=== PATIENT | female | born 1955 | race Caucasian/White ===

== ENCOUNTER 2017-10-28 07:40 | Inpatient (IN) | payer OTHER ==
[~2017-10-28] VITALS: Ht 170.2 cm; Wt 121.5 kg
[~2017-10-28 07:40] MED LIST: ADVIL200 MG PO; ALDACTAZIDE 251 EACH PO; COREG25 M1 PO; DOXYCYCLINE HY100 MG PO; EFFEXOR75 MG PO; LO-DOSE ASPIRIN81 M1 PO; LOTENSIN40 MG PO; PROTONIX40 MG PO
[2017-12-02] MEDS ORDERED: CORICIDIN HBP1 EACH PO (08:37)
[2017-12-04 10:42] VITALS: BP 137/74
[2017-12-04 20:34] VITALS: BP 169/91
[2017-12-04 21:45] LABS: BASOPHIL (%) 0.1 % (0-1); EOSINOPHIL (%) 0.1 % (0-5); HEMATOCRIT 31.3 % (36.0-46.0); HEMOGLOBIN 10.2 G/DL (11.9-15.5); IMMATURE GRANULOCYTE (%) 0.4 % (0.0-0.7); LYMPHOCYTE (%) 6.9 % (15-42); LYMPHOCYTE COUNT 0.9 K/uL (1.0-2.8); MCH 30.4 PG (29.0-34.0); MCHC 32.6 G/DL (30.0-36.0); MCV 93.4 FL (83-99); MONOCYTE (%) 2.6 % (3-12); MONOCYTE COUNT 0.3 K/uL (0-0.8); NEUTROPHIL (%) 89.9 % (45-76); NEUTROPHIL COUNT 11.8 K/uL (1.8-6.4); PLATELET COUNT 296 K/uL (156-360); RBC DIS.WIDTH-CV 14.1 % (11.8-14.6); RBC DIS.WIDTH-SD 48.1 % (39-53); RED BLOOD COUNT 3.35 M/uL (3.80-5.20); WHITE BLOOD COUNT 13.1 K/uL (4.1-10.2)
[2017-12-04 22:00] LABS: CHLORIDE 108 MEQ/L (99-109); CREATININE 1.2 MG/DL (0.6-1.3); GFR ESTIMATE (CALCULATED) 48 mL/min/; GLUCOSE 206 mg/dL (70-99); POTASSIUM 3.8 MEQ/L (3.7-5.4); SODIUM 140 MEQ/L (136-147); UREA NITROGEN (BUN) 22 mg/dL (9-23)
[2017-12-04 23:55] VITALS: BP 128/63
[2017-12-05 04:39] VITALS: BP 129/76
[2017-12-05 05:01] LABS: APPEARANCE CLEAR ((CLEAR)); BILIRUBIN NEGATIVE; BLOOD NEGATIVE; COLOR YELLOW ((YELLOW)); GLUCOSE (STRIP) NEGATIVE; KETONES NEGATIVE; LEUKOCYTES NEGATIVE; NITRITE NEGATIVE; PROTEIN (STRIP) NEGATIVE; SPECIFIC GRAVITY 1.038 (1.000-1.030); UROBILINOGEN 0.2 MG/DL (0.2-1.0)
[2017-12-05 08:21] VITALS: BP 127/71
[2017-12-05] MEDS ORDERED: TIZANIDINE HCL4 MG PO (13:09)
[2017-12-05] MEDS ORDERED: ENDOCET 5-3251 EACH PO (13:09)
[2017-12-05 13:46] LABS: HEMOGLOBIN A1c (GLYCOHEMOGLOB) 5.6 % (Below 5.7)
[2017-12-05 15:11] VITALS: BP 127/62
== END 2017-12-05 18:19 | disposition home or self-care (01) | DRG 454 ==
LOC: 2SOUTH 07:40 → ENRESERV 12-03 22:14 → 2SOUTH 12-04 09:22 → ENRESERV 12-04 15:41 → ENRESERVDT 12-04 15:41 → ENRESERVTM 12-04 15:41 → 3EAST 12-04 17:00
PROVIDERS: Hospitalist; Neurological Surgery; Physician Assistant Medical
DX: M47.26 Other spondylosis with radiculopathy, lumbar region (principal); M54.41 Lumbago with sciatica, right side; R73.9 Hyperglycemia, unspecified; D64.9 Anemia, unspecified; L08.9 Local infection of the skin and subcutaneous tissue, unspecified; M41.9 Scoliosis, unspecified; I10 Essential (primary) hypertension; K21.9 Gastro-esophageal reflux disease without esophagitis; I12.9 Hypertensive chronic kidney disease with stage 1 through stage 4 chronic kidney disease, or unspecified chronic kidney disease; N18.3 Chronic kidney disease, stage 3 (moderate); M81.0 Age-related osteoporosis without current pathological fracture; F32.9 Major depressive disorder, single episode, unspecified; E66.01 Morbid (severe) obesity due to excess calories; Z96.641 Presence of right artificial hip joint; Z88.1 Allergy status to other antibiotic agents; Z88.5 Allergy status to narcotic agent; Z86.14 Personal history of Methicillin resistant Staphylococcus aureus infection; Z98.1 Arthrodesis status; Z68.41 Body mass index [BMI] 40.0-44.9, adult; Z79.2 Long term (current) use of antibiotics; Z79.82 Long term (current) use of aspirin
CPT/HCPCS: 72100; 76000; 80048; 81003; 82948; 83036; 85025; 86850; 86900; 86901; J0131; J0690; J0878; J1100; J1170; J1200; J1580; J1885; J2250; J2405; J2710; J2930; J3370; J3480; J7050; J7120; J7643; Q0175; S0020